=== PATIENT | female | born 1995 | race Caucasian/White ===

== ENCOUNTER 2017-03-28 11:11 | Emergency (ER) | payer SELFPAY ==
[~2017-03-28] VITALS: Ht 160 cm; Wt 80.1 kg
[2017-03-28] MEDS ORDERED: PRENATAL (12:17)
[2017-03-28] MEDS ORDERED: SODIUM CHLORIDE 0.9% 1,000ML IVBOLUS ONE (12:30)
[2017-03-28] MEDS ORDERED: METOCLOPRAMIDE 5 MG/ML, 2ML IVPush ONE (12:30)
[2017-03-28] MEDS ORDERED: SODIUM CHLORIDE FLUSH 10ML SYR IVF ONE (12:30)
[2017-03-28 12:42] LABS: BLOOD UREA NITROGEN 7 mg/dL (7-18)
[2017-03-28] MEDS ORDERED: METOCLOPRAMIDE 5 MG/ML, 2ML ONE (12:42)
[2017-03-28 13:56] VITALS: BP 124/75
== END 2017-03-28 14:07 | disposition home or self-care (01) ==
LOC: ED 14:01
DX: O21.0 Mild hyperemesis gravidarum (principal); E86.0 Dehydration; E88.89 Other specified metabolic disorders; Z3A.21 21 weeks gestation of pregnancy
CPT/HCPCS: 36415; 80048; 81003; 82040; 85025; 96361; 96374; 99284; J2765; J7030